=== PATIENT | female | born 1995 | race Caucasian/White ===

== ENCOUNTER 2016-12-08 10:16 | Emergency (ER) | payer OTHER ==
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
--- NOTE | 2016-12-08 13:13 | RAD ---
HISTORY: Pain, contusion, top of foot, left foot COMPARISONS: None VIEWS: 3, Frontal, lateral, and oblique views of the left foot FINDINGS: BONE DENSITY: Normal. BONES: There is no displaced fracture. JOINTS: There is no arthropathy. ALIGNMENT: There is no dislocation. SOFT TISSUES: Unremarkable. OTHER FINDINGS: None. IMPRESSION: NO ACUTE OSSEOUS INJURY. IF SYMPTOMS PERSIST, RECOMMEND REPEAT IMAGING.
[2016-12-08 13:47] VITALS: BP 106/72
== END 2016-12-08 13:30 | disposition home or self-care (01) ==
LOC: UCEAST 10:16
DX: S90.32XA Contusion of left foot, initial encounter (principal); W21.02XA Struck by soccer ball, initial encounter; Y93.66 Activity, soccer; Y92.9 Unspecified place or not applicable; Z88.5 Allergy status to narcotic agent
CPT/HCPCS: 99213; G0463